=== PATIENT | female | born 1985 | race Caucasian/White ===

== ENCOUNTER 2016-06-10 16:44 | Emergency (ER) | payer OTHER ==
[~2016-06-10] VITALS: Ht 154.9 cm; Wt 92.7 kg
[~2016-06-10 16:44] MED LIST: BENTYL20 MG PO; CITRATE OF MAG296 ML PO; DIPROSONE 0.05%15 GM TP; KEFLEX500 MG PO; LEVOTHYROXINE137 MCG PO; METHYLPHENIDATE5 MG PO; MIRALAX17 GM PO; NEURONTIN800 MG PO; NEXPLANON68 MG SC; NORCO 5/3251 TABLET PO; OMEPRAZOLE40 M1 PO; PEPCID20 MG PO; PREDNISONE20 MG PO; PROVENTIL,2.5 MG/3 M IH; RANITIDINE HCL150 M1 PO; SEROQUEL PO; SEROQUEL XR300 MG PO; SEROQUEL300 MG PO; SERTRALINE HCL100 MG PO; SYNTHROID75 MCG PO; TOPIRAMATE25 MG PO; TROKENDI XR100 MG PO; TROKENDI XR200 MG PO; TYLENOL REGULA325 MG PO; VENTOLIN HFA18 GM IH; WELLBUTRIN SR200 MG PO; ZOFRAN8 MG PO; ZOLOFT50 MG PO
[2016-06-10] MEDS ORDERED: PREDNISONE10 MG PO (17:48)
[2016-06-10] MEDS ORDERED: PEPCID20 MG PO (17:48)
[2016-06-10] MEDS ORDERED: BENADRYL50 MG PO (17:48)
[2016-06-10 18:02] VITALS: BP 115/71
== END 2016-06-10 18:05 | disposition home or self-care (01) ==
LOC: EME 16:44
DX: T78.40XA Allergy, unspecified, initial encounter (principal); R21 Rash and other nonspecific skin eruption
CPT/HCPCS: 99281; 99284

== ENCOUNTER 2016-11-03 15:57 | Emergency (ER) | payer OTHER ==
[~2016-11-03] VITALS: Ht 152.4 cm; Wt 90.4 kg
[~2016-11-03 15:57] MED LIST changes: +BENADRYL50 MG PO; +PREDNISONE10 MG PO
[2016-11-03 16:39] LABS: HEMATOCRIT 36.2 % (36.0-46.0); MCH 31.5 PG (29.0-34.0); MCHC 33.1 G/DL (30.0-36.0); PLATELET COUNT 248 K/uL (156-360); RBC DIS.WIDTH-CV 13.2 % (11.8-14.6); RBC DIS.WIDTH-SD 46.3 % (39-53); RED BLOOD COUNT 3.81 M/uL (3.80-5.20)
[2016-11-03 16:47] LABS: CHLORIDE 107 mEq/L (99-109); POTASSIUM 3.7 mEq/L (3.7-5.4); SODIUM 140 mEq/L (136-147)
[2016-11-03 16:49] LABS: GLUCOSE 106 mg/dL (70-99)
[2016-11-03 16:51] LABS: ANION GAP 10 MEQ/L (2-14); TOTAL BILIRUBIN 0.3 mg/dL (0.0-1.0)
[2016-11-03 16:53] LABS: GFR ESTIMATE (CALCULATED) 56 mL/min/
[2016-11-03 16:54] LABS: ALKALINE PHOSPHATASE 77 IU/L (3-129)
[2016-11-03 16:55] LABS: UREA NITROGEN (BUN) 9 mg/dL (9-23)
[2016-11-03 16:56] LABS: SALICYLATE < 5.0 MG/DL (15-30)
[2016-11-03 17:03] LABS: QUANTITATIVE HCG < 4.0 MIU/ML
[2016-11-03 17:11] LABS: ADD MIUA? YES; BILIRUBIN NEGATIVE; BLOOD MODERATE; COLOR YELLOW ((YELLOW)); GLUCOSE (STRIP) NEGATIVE; KETONES NEGATIVE; LEUKOCYTES MODERATE; NITRITE NEGATIVE; PROTEIN (STRIP) 30; SPECIFIC GRAVITY 1.019 (1.000-1.030); UROBILINOGEN 0.2 MG/DL (0.2-1.0)
[2016-11-03 17:19] LABS: AMPHETAMINE NEGATIVE (500 ng/mL); BARBITURATES NEGATIVE (200 ng/mL); BENZODIAZEPINES NEGATIVE (150 ng/mL); COCAINE NEGATIVE (150 ng/mL); INTERNAL CONTROLS VALID? YES; METHADONE NEGATIVE (200 ng/mL); METHAMPHETAMINE NEGATIVE (500 ng/mL); OPIATES (MORPHINE) NEGATIVE (100 ng/mL); OXYCODONE NEGATIVE (100 ng/mL); PHENCYCLIDINE NEGATIVE (25 ng/mL); PROPOXYPHENE NEGATIVE (300 ng/mL); THC CANNABINOIDS NEGATIVE (50 ng/mL); TRICYCLIC ANTIDEPRESSANTS PRESUMPTIVE POSITIVE (300 ng/mL)
[2016-11-03 17:30] LABS: BACTERIA 1+ /HPF; CALCIUM OXALATE CRYSTALS 2+ /HPF; CASTS NONE SEEN /LPF; CRYSTALS PRESENT; EPITHELIAL CELLS 2+ /HPF; MUCUS NONE SEEN /LPF; UCUL ADDED? NO; WHITE BLOOD CELLS 0-5 /HPF (0-5)
[2016-11-03 18:04] VITALS: BP 116/77
[2016-11-03] MEDS ORDERED: ZOLOFT50 MG PO (18:09)
[2016-11-03] MEDS ORDERED: ZOLOFT100 MG PO (18:09)
[2016-11-03] MEDS ORDERED: SEROQUEL400 MG PO (18:10)
== END 2016-11-03 18:07 | disposition home or self-care (01) ==
LOC: EME 15:57
PROVIDERS: Physician Assistant
DX: F31.32 Bipolar disorder, current episode depressed, moderate (principal); S41.112A Laceration without foreign body of left upper arm, initial encounter; X78.9XXA Intentional self-harm by unspecified sharp object, initial encounter; F60.3 Borderline personality disorder; F41.9 Anxiety disorder, unspecified; K21.9 Gastro-esophageal reflux disease without esophagitis; J45.909 Unspecified asthma, uncomplicated; E05.90 Thyrotoxicosis, unspecified without thyrotoxic crisis or storm; F90.9 Attention-deficit hyperactivity disorder, unspecified type; Z87.891 Personal history of nicotine dependence; Z88.0 Allergy status to penicillin
CPT/HCPCS: 80053; 81003; 84702; 85027; 90839; 99281; 99285; G0480

== ENCOUNTER 2017-02-20 14:52 | Inpatient (IN) | payer OTHER ==
[~2017-02-20] VITALS: Ht 154.9 cm; Wt 91.0 kg
[~2017-02-20 14:52] MED LIST changes: +LEVO-T150 MCG PO; -LEVOTHYROXINE137 MCG PO; +ZOLOFT100 MG PO
[2017-02-20 16:25] LABS: HEMATOCRIT 38.4 % (36.0-46.0); MCH 32.5 PG (29.0-34.0); MCHC 33.1 G/DL (30.0-36.0); MCV 98.2 FL (83-99); MEAN PLAT.VOLUME 10.5 uM^3 (9.5-12.4); PLATELET COUNT 277 K/uL (156-360); RBC DIS.WIDTH-CV 15.2 % (11.8-14.6); RBC DIS.WIDTH-SD 55.2 % (39-53); RED BLOOD COUNT 3.91 M/uL (3.80-5.20); WHITE BLOOD COUNT 7.4 K/uL (4.1-10.2)
[2017-02-20 16:30] LABS: CHLORIDE 104 mEq/L (99-109); SODIUM 140 mEq/L (136-147)
[2017-02-20 16:32] LABS: GLUCOSE 102 mg/dL (70-99)
[2017-02-20 16:34] LABS: ANION GAP 10 MEQ/L (2-14); TOTAL BILIRUBIN 0.2 mg/dL (0.0-1.0)
[2017-02-20 16:35] LABS: SERUM ETHYL ALCOHOL < 10 mg/dL
[2017-02-20 16:36] LABS: ALKALINE PHOSPHATASE 76 IU/L (3-129); GFR ESTIMATE (CALCULATED) > 59 mL/min/
[2017-02-20 16:37] LABS: UREA NITROGEN (BUN) 12 mg/dL (9-23)
[2017-02-20 16:38] LABS: DIRECT BILIRUBIN 0.1 mg/dL (0.0-0.3)
[2017-02-20 16:45] LABS: QUANTITATIVE HCG < 4.0 MIU/ML
[2017-02-20 17:36] LABS: AMPHETAMINE NEGATIVE (500 ng/mL); BENZODIAZEPINES NEGATIVE (150 ng/mL); COCAINE NEGATIVE (150 ng/mL); METHAMPHETAMINE NEGATIVE (500 ng/mL); OPIATES (MORPHINE) NEGATIVE (100 ng/mL); PHENCYCLIDINE NEGATIVE (25 ng/mL); THC CANNABINOIDS NEGATIVE (50 ng/mL)
[2017-02-20 17:37] LABS: BARBITURATES NEGATIVE (200 ng/mL); INTERNAL CONTROLS VALID? YES; METHADONE NEGATIVE (200 ng/mL); OXYCODONE NEGATIVE (100 ng/mL); PROPOXYPHENE NEGATIVE (300 ng/mL); TRICYCLIC ANTIDEPRESSANTS PRESUMPTIVE POSITIVE (300 ng/mL)
[2017-02-20] MEDS ORDERED: IRON325 M1 PO (19:20)
[2017-02-20] MEDS ORDERED: PROVERA,CYCRIN10 MG PO (19:20)
[2017-02-20] MEDS ORDERED: FLONASE16 G1 BOTH NARES (19:21)
[2017-02-20] MEDS ORDERED: LAMICTAL25 MG PO (19:22)
[2017-02-20] MEDS ORDERED: KENALOG,ARISTOC80 GM TP (19:23)
[2017-02-20] MEDS ORDERED: NIZORAL SHAMPO120 ML TP (19:23)
[2017-02-20] MEDS ORDERED: SEROQUEL100 MG PO (19:25)
[2017-02-20 21:28] VITALS: BP 125/87
[2017-02-21 07:31] VITALS: BP 109/55
[2017-02-21 15:22] VITALS: BP 120/67
[2017-02-22 07:52] VITALS: BP 113/57
[2017-02-22 16:12] VITALS: BP 117/59
[2017-02-23 07:38] VITALS: BP 115/69
[2017-02-23 16:04] VITALS: BP 109/59
[2017-02-24 07:57] VITALS: BP 117/56
[2017-02-24 15:40] VITALS: BP 104/56
[2017-02-24] MEDS ORDERED: LINZESS145 MCG PO (16:27)
[2017-02-24] MEDS ORDERED: BENTYL10 MG PO (16:29)
[2017-02-24] MEDS ORDERED: LACTULOSE10 GM/151 PO (16:29)
[2017-02-24] MEDS ORDERED: ZANTAC150 MG PO (16:35)
[2017-02-25 07:34] VITALS: BP 94/55
[2017-02-25 15:31] VITALS: BP 115/63
[2017-02-26 06:54] VITALS: BP 97/52
[2017-02-26 15:31] VITALS: BP 122/82
[2017-02-27 07:48] VITALS: BP 100/61
[2017-02-27 15:00] VITALS: BP 129/69
[2017-02-28 07:59] VITALS: BP 109/55
[2017-02-28] MEDS ORDERED: BUSPAR10 MG PO (09:05)
[2017-02-28] MEDS ORDERED: QUETIAPINE FUM300 M1 PO (09:05)
[2017-02-28] MEDS ORDERED: LAMICTAL25 MG PO (09:05)
== END 2017-02-28 12:35 | disposition home or self-care (01) | DRG 885 ==
LOC: EME 14:52 → EDOF 18:25 → 1WEST 18:25 → ENRESERV 20:57 → 1WEST 21:00
DX: F31.81 Bipolar II disorder (principal); R45.851 Suicidal ideations; F60.3 Borderline personality disorder; R45.850 Homicidal ideations; K31.84 Gastroparesis; D50.9 Iron deficiency anemia, unspecified; Z91.5 Personal history of self-harm; E03.8 Other specified hypothyroidism; F17.210 Nicotine dependence, cigarettes, uncomplicated; F90.9 Attention-deficit hyperactivity disorder, unspecified type; F41.9 Anxiety disorder, unspecified; Z91.14 Patient's other noncompliance with medication regimen; K21.9 Gastro-esophageal reflux disease without esophagitis; J45.909 Unspecified asthma, uncomplicated; Z81.8 Family history of other mental and behavioral disorders; Z88.0 Allergy status to penicillin; Z79.51 Long term (current) use of inhaled steroids; Z56.0 Unemployment, unspecified
CPT/HCPCS: 80048; 80076; 84439; 84443; 84702; 85027; 90839; 97150 GO; 97530 GO; 99281; 99285; G0480; Q0177

== ENCOUNTER 2017-03-16 14:02 | Emergency (ER) | payer OTHER ==
[~2017-03-16] VITALS: Ht 152.4 cm; Wt 92.6 kg
[~2017-03-16 14:02] MED LIST changes: +BENTYL10 MG PO; +BUSPAR10 MG PO; +FLONASE16 G1 BOTH NARES; +IRON325 M1 PO; +KENALOG,ARISTOC80 GM TP; +LACTULOSE10 GM/151 PO; +LAMICTAL25 MG PO; +LINZESS145 MCG PO; +NIZORAL SHAMPO120 ML TP; +PROVERA,CYCRIN10 MG PO; +QUETIAPINE FUM300 M1 PO; +SEROQUEL100 MG PO; +ZANTAC150 MG PO
[2017-03-16 14:36] LABS: HEMATOCRIT 39.2 % (36.0-46.0); MCH 32.8 PG (29.0-34.0); MCHC 33.7 G/DL (30.0-36.0); MCV 97.3 FL (83-99); MEAN PLAT.VOLUME 10.2 uM^3 (9.5-12.4); PLATELET COUNT 279 K/uL (156-360); RBC DIS.WIDTH-CV 13.9 % (11.8-14.6); RBC DIS.WIDTH-SD 49.9 % (39-53); RED BLOOD COUNT 4.03 M/uL (3.80-5.20); WHITE BLOOD COUNT 6.7 K/uL (4.1-10.2)
[2017-03-16 14:45] LABS: CHLORIDE 102 mEq/L (99-109); POTASSIUM 4.2 mEq/L (3.7-5.4); SODIUM 138 mEq/L (136-147)
[2017-03-16 14:47] LABS: GLUCOSE 106 mg/dL (70-99)
[2017-03-16 14:49] LABS: ANION GAP 8 MEQ/L (2-14); TOTAL BILIRUBIN 0.2 mg/dL (0.0-1.0)
[2017-03-16 14:51] LABS: ALKALINE PHOSPHATASE 81 IU/L (3-129); GFR ESTIMATE (CALCULATED) > 59 mL/min/
[2017-03-16 14:52] LABS: UREA NITROGEN (BUN) 9 mg/dL (9-23)
[2017-03-16 15:00] LABS: QUANTITATIVE HCG < 4.0 MIU/ML
[2017-03-16 15:38] LABS: ADD MIUA? YES; BILIRUBIN NEGATIVE; BLOOD SMALL; COLOR YELLOW ((YELLOW)); GLUCOSE (STRIP) NEGATIVE; KETONES NEGATIVE; LEUKOCYTES SMALL; NITRITE NEGATIVE; PROTEIN (STRIP) NEGATIVE; SPECIFIC GRAVITY 1.006 (1.000-1.030); UROBILINOGEN 0.2 MG/DL (0.2-1.0)
[2017-03-16 15:45] LABS: BACTERIA RARE /HPF; EPITHELIAL CELLS 4+ /HPF; MUCUS TRACE /LPF; RED BLOOD CELLS 0-5 /HPF (0-5); UCUL ADDED? NO; WHITE BLOOD CELLS 0-5 /HPF (0-5)
[2017-03-16] MEDS ORDERED: DONNATAL1 TABLET PO (17:49)
[2017-03-16 18:02] VITALS: BP 146/100
== END 2017-03-16 18:10 | disposition home or self-care (01) ==
LOC: EME 14:02
DX: R10.11 Right upper quadrant pain (principal); K21.9 Gastro-esophageal reflux disease without esophagitis; J45.909 Unspecified asthma, uncomplicated; E03.9 Hypothyroidism, unspecified; K31.84 Gastroparesis; E66.01 Morbid (severe) obesity due to excess calories; Z68.39 Body mass index [BMI] 39.0-39.9, adult; F17.200 Nicotine dependence, unspecified, uncomplicated; F41.9 Anxiety disorder, unspecified; F32.9 Major depressive disorder, single episode, unspecified; F31.9 Bipolar disorder, unspecified; F90.9 Attention-deficit hyperactivity disorder, unspecified type; Z88.0 Allergy status to penicillin; Z88.8 Allergy status to other drugs, medicaments and biological substances
CPT/HCPCS: 76705; 80053; 81003; 84702; 85027; 99281; 99285

== ENCOUNTER 2017-03-23 22:09 | Inpatient (IN) | payer OTHER ==
[~2017-03-23] VITALS: Ht 154.9 cm; Wt 95.7 kg
[~2017-03-23 22:09] MED LIST changes: +DONNATAL1 TABLET PO
[2017-03-23 22:55] LABS: EOSINOPHIL COUNT 0.1 K/uL (0-0.3); HEMATOCRIT 37.7 % (36.0-46.0); IMMATURE GRANULOCYTE (%) 0.2 % (0.0-0.7); INSTRUMENT ABS NEUTROPHIL CT 3.4 K/uL; LYMPHOCYTE COUNT 2.4 K/uL (1.0-2.8); MCH 32.5 PG (29.0-34.0); MCHC 33.4 G/DL (30.0-36.0); MCV 97.2 FL (83-99); MEAN PLAT.VOLUME 10.7 uM^3 (9.5-12.4); MONOCYTE COUNT 0.5 K/uL (0-0.8); NEUTROPHIL (%) 52.5 % (45-76); NEUTROPHIL COUNT 3.4 K/uL (1.8-6.4); PLATELET COUNT 257 K/uL (156-360); RBC DIS.WIDTH-CV 13.7 % (11.8-14.6); RBC DIS.WIDTH-SD 48.5 % (39-53); RED BLOOD COUNT 3.88 M/uL (3.80-5.20); WHITE BLOOD COUNT 6.4 K/uL (4.1-10.2)
[2017-03-23 23:00] LABS: ADD MIUA? YES; BILIRUBIN NEGATIVE; BLOOD MODERATE; COLOR YELLOW ((YELLOW)); GLUCOSE (STRIP) NEGATIVE; KETONES NEGATIVE; LEUKOCYTES MODERATE; NITRITE NEGATIVE; PROTEIN (STRIP) NEGATIVE; SPECIFIC GRAVITY 1.008 (1.000-1.030); UROBILINOGEN 0.2 MG/DL (0.2-1.0)
[2017-03-23 23:03] LABS: CHLORIDE 107 mEq/L (99-109); POTASSIUM 3.4 mEq/L (3.7-5.4); SODIUM 141 mEq/L (136-147)
[2017-03-23 23:05] LABS: GLUCOSE 139 mg/dL (70-99)
[2017-03-23 23:06] LABS: ANION GAP 11 MEQ/L (2-14)
[2017-03-23 23:07] LABS: BACTERIA RARE /HPF; EPITHELIAL CELLS 3+ /HPF; MUCUS TRACE /LPF; RED BLOOD CELLS 0-5 /HPF (0-5); UCUL ADDED? YES
[2017-03-23 23:07] LABS: TOTAL BILIRUBIN 0.1 mg/dL (0.0-1.0)
[2017-03-23 23:08] LABS: SERUM ETHYL ALCOHOL < 10 mg/dL
[2017-03-23 23:09] LABS: ALKALINE PHOSPHATASE 81 IU/L (3-129); GFR ESTIMATE (CALCULATED) > 59 mL/min/
[2017-03-23 23:11] LABS: UREA NITROGEN (BUN) 11 mg/dL (9-23)
[2017-03-23 23:11] LABS: AMPHETAMINE NEGATIVE (500 ng/mL); BARBITURATES NEGATIVE (200 ng/mL); BENZODIAZEPINES NEGATIVE (150 ng/mL); COCAINE NEGATIVE (150 ng/mL); INTERNAL CONTROLS VALID? YES; METHADONE NEGATIVE (200 ng/mL); METHAMPHETAMINE NEGATIVE (500 ng/mL); OPIATES (MORPHINE) NEGATIVE (100 ng/mL); OXYCODONE NEGATIVE (100 ng/mL); PHENCYCLIDINE NEGATIVE (25 ng/mL); PROPOXYPHENE NEGATIVE (300 ng/mL); THC CANNABINOIDS NEGATIVE (50 ng/mL); TRICYCLIC ANTIDEPRESSANTS PRESUMPTIVE POSITIVE (300 ng/mL)
[2017-03-23 23:12] LABS: SALICYLATE < 5.0 MG/DL (15-30)
[2017-03-23 23:13] LABS: CREATINE KINASE 155 IU/L (1-294); TOTAL CK 155 IU/L (1-294)
[2017-03-23 23:18] LABS: QUANTITATIVE HCG < 4.0 MIU/ML
[2017-03-23 23:19] LABS: CK-MB 0.9 ng/mL (0.0-4.9)
[2017-03-24] MEDS ORDERED: LAMICTAL25 MG PO (08:04)
[2017-03-24] MEDS ORDERED: QUETIAPINE FUM300 MG PO (08:05)
[2017-03-24] MEDS ORDERED: BUSPAR10 MG PO (08:06)
[2017-03-24] MEDS ORDERED: LEVOTHYROXINE175 MCG PO (08:08)
[2017-03-24] MEDS ORDERED: TRAZODONE HCL50 MG PO (08:10)
[2017-03-24] MEDS ORDERED: CLOBETASOL PROP60 GM TP (08:10)
[2017-03-24] MEDS ORDERED: ESCITALOPRAM OX10 MG PO (08:11)
[2017-03-24 16:13] VITALS: BP 163/76
[2017-03-24 16:14] VITALS: BP 163/76
[2017-03-25 07:46] VITALS: BP 95/52
[2017-03-25 15:28] VITALS: BP 113/53
[2017-03-26 07:53] VITALS: BP 98/62
[2017-03-26 15:25] VITALS: BP 108/63
[2017-03-27 07:43] VITALS: BP 83/51
[2017-03-27] MEDS ORDERED: LAMICTAL25 MG PO (07:57)
[2017-03-27] MEDS ORDERED: BUSPAR15 MG PO (07:57)
== END 2017-03-27 08:39 | disposition home or self-care (01) | DRG 885 ==
LOC: EME 22:09 → EDOF 03-24 15:25 → 1WEST 03-24 15:25 → ENRESERV 03-24 15:47 → 1WEST 03-24 15:58
PROVIDERS: Emergency Medicine
DX: F31.81 Bipolar II disorder (principal); F60.3 Borderline personality disorder; E66.9 Obesity, unspecified; K21.9 Gastro-esophageal reflux disease without esophagitis; F17.200 Nicotine dependence, unspecified, uncomplicated; E03.9 Hypothyroidism, unspecified; Z91.14 Patient's other noncompliance with medication regimen; Z88.0 Allergy status to penicillin; Z88.8 Allergy status to other drugs, medicaments and biological substances; Z68.39 Body mass index [BMI] 39.0-39.9, adult
CPT/HCPCS: 80053; 81003; 82550; 82553; 84702; 85025; 87077; 87086; 87186; 90839; 93005; 94760; 99202; 99281; 99284; G0480; J7040

== ENCOUNTER 2017-06-23 06:58 | Day surgery (SDC) | payer OTHER ==
[~2017-06-23] VITALS: Ht 154.9 cm; Wt 96.0 kg
[~2017-06-23 06:58] MED LIST changes: +BUSPAR15 MG PO; +CLOBETASOL PROP60 GM TP; +ESCITALOPRAM OX10 MG PO; +LEVOTHYROXINE175 MCG PO; +QUETIAPINE FUM300 MG PO; +TRAZODONE HCL50 MG PO
[2017-06-23 07:38] LABS: HEMATOCRIT 36.4 % (36.0-46.0); HEMOGLOBIN 12.2 G/DL (11.9-15.5); MCV 97.3 FL (83-99)
[2017-06-23 07:51] VITALS: BP 129/85
[2017-06-23] MEDS ORDERED: ENDOCET 5-3251 EACH PO (10:48)
[2017-06-23] MEDS ORDERED: IBUPROFEN800 MG PO (10:48)
[2017-06-23 11:25] VITALS: BP 135/72
[2017-06-23 12:25] VITALS: BP 103/55
== END 2017-06-23 12:40 | disposition home or self-care (01) ==
LOC: SDC 06:58
PROVIDERS: Obstetrics & Gynecology
DX: N93.9 Abnormal uterine and vaginal bleeding, unspecified (principal); R10.2 Pelvic and perineal pain; J45.909 Unspecified asthma, uncomplicated; K21.9 Gastro-esophageal reflux disease without esophagitis; K31.84 Gastroparesis; E03.9 Hypothyroidism, unspecified; E66.01 Morbid (severe) obesity due to excess calories; Z68.41 Body mass index [BMI] 40.0-44.9, adult; D50.8 Other iron deficiency anemias; F31.10 Bipolar disorder, current episode manic without psychotic features, unspecified; F90.9 Attention-deficit hyperactivity disorder, unspecified type; F17.200 Nicotine dependence, unspecified, uncomplicated; Z88.0 Allergy status to penicillin; Z88.2 Allergy status to sulfonamides; Z88.8 Allergy status to other drugs, medicaments and biological substances; Z83.3 Family history of diabetes mellitus; Z80.9 Family history of malignant neoplasm, unspecified
CPT/HCPCS: 84702; 85014; 85018; 86850; 86900; 86901; 88302; 88305; J1100; J1170; J1885; J2250; J2710; S0020

== ENCOUNTER 2017-07-19 12:52 | Emergency (ER) | payer OTHER ==
[~2017-07-19] VITALS: Ht 152.4 cm; Wt 95.3 kg
[~2017-07-19 12:52] MED LIST changes: +ENDOCET 5-3251 EACH PO; +IBUPROFEN800 MG PO
[2017-07-19 13:29] LABS: APPEARANCE CLOUDY ((CLEAR)); BILIRUBIN NEGATIVE; BLOOD NEGATIVE; COLOR YELLOW ((YELLOW)); GLUCOSE (STRIP) NEGATIVE; KETONES NEGATIVE; LEUKOCYTES TRACE; NITRITE NEGATIVE; PROTEIN (STRIP) 100; SPECIFIC GRAVITY 1.029 (1.000-1.030); UROBILINOGEN 0.2 MG/DL (0.2-1.0)
[2017-07-19 13:31] LABS: BASOPHIL (%) 0.2 % (0-1); EOSINOPHIL (%) 1.1 % (0-5); EOSINOPHIL COUNT 0.1 K/uL (0-0.3); HEMATOCRIT 37.3 % (36.0-46.0); HEMOGLOBIN 12.9 G/DL (11.9-15.5); IMMATURE GRANULOCYTE (%) 0.5 % (0.0-0.7); LYMPHOCYTE (%) 7.8 % (15-42); LYMPHOCYTE COUNT 0.7 K/uL (1.0-2.8); MCH 32.7 PG (29.0-34.0); MCHC 34.6 G/DL (30.0-36.0); MCV 94.4 FL (83-99); MONOCYTE (%) 7.5 % (3-12); MONOCYTE COUNT 0.7 K/uL (0-0.8); NEUTROPHIL (%) 82.9 % (45-76); NEUTROPHIL COUNT 7.3 K/uL (1.8-6.4); PLATELET COUNT 241 K/uL (156-360); RBC DIS.WIDTH-SD 44.3 % (39-53); RED BLOOD COUNT 3.95 M/uL (3.80-5.20); WHITE BLOOD COUNT 8.8 K/uL (4.1-10.2)
[2017-07-19 13:42] LABS: EPITHELIAL CELLS 3+ /HPF
[2017-07-19 13:43] LABS: ALBUMIN 4.6 g/dL (3.2-4.8); CHLORIDE 105 mEq/L (99-109); SODIUM 136 mEq/L (136-147)
[2017-07-19 13:44] LABS: BACTERIA 1+ /HPF; MUCUS NONE SEEN /LPF; RED BLOOD CELLS NONE SEEN /HPF (0-5)
[2017-07-19 13:46] LABS: GLUCOSE 114 mg/dL (70-99); TOTAL PROTEIN 7.8 g/dL (6.4-8.3)
[2017-07-19 13:48] LABS: TOTAL BILIRUBIN 0.9 mg/dL (0.0-1.0)
[2017-07-19 13:49] LABS: ALKALINE PHOSPHATASE 98 IU/L (3-129); GFR ESTIMATE (CALCULATED) > 59 mL/min/
[2017-07-19 13:50] LABS: UREA NITROGEN (BUN) 17 mg/dL (9-23)
[2017-07-19 13:51] LABS: AST (GOT) 22 IU/L (2-34)
[2017-07-19 13:52] LABS: ALT (GPT) 29 IU/L (3-49)
[2017-07-19 13:53] LABS: LIPASE 28 U/L (1.0-51.0)
[2017-07-19 14:00] LABS: QUANTITATIVE HCG < 4.0 MIU/ML
[2017-07-19] MEDS ORDERED: ULTRAM50 MG PO (15:26)
[2017-07-19] MEDS ORDERED: PYRIDIUM200 MG PO (15:26)
[2017-07-19] MEDS ORDERED: MACROBID100 MG PO (15:26)
[2017-07-19 15:31] VITALS: BP 125/79
== END 2017-07-19 15:33 | disposition home or self-care (01) ==
LOC: EME 12:52
PROVIDERS: Physician Assistant
DX: N39.0 Urinary tract infection, site not specified (principal); N20.0 Calculus of kidney; K21.9 Gastro-esophageal reflux disease without esophagitis; J45.909 Unspecified asthma, uncomplicated; E03.9 Hypothyroidism, unspecified; F90.9 Attention-deficit hyperactivity disorder, unspecified type; F17.200 Nicotine dependence, unspecified, uncomplicated; Z98.890 Other specified postprocedural states; Z87.19 Personal history of other diseases of the digestive system; Z88.0 Allergy status to penicillin; Z88.8 Allergy status to other drugs, medicaments and biological substances
CPT/HCPCS: 74176; 80053; 81003; 83690; 84702; 85025; 87086; 99281; 99284; J1885